=== PATIENT | male | born 1955 | race Caucasian/White ===

== ENCOUNTER 2017-08-23 01:09 | Emergency (ER) | payer OTHER, BC ==
[~2017-08-23] VITALS: Ht 193 cm; Wt 132.9 kg
[2017-08-23 03:08] VITALS: BP 152/87
== END 2017-08-23 03:08 | disposition home or self-care (01) ==
LOC: EME 01:09
DX: S09.90XA Unspecified injury of head, initial encounter (principal); S16.1XXA Strain of muscle, fascia and tendon at neck level, initial encounter; W20.8XXA Other cause of strike by thrown, projected or falling object, initial encounter; Y99.0 Civilian activity done for income or pay
CPT/HCPCS: 70450; 72125; 99281; 99284